=== PATIENT | male | born 1975 | race African-American/Black ===

== ENCOUNTER → 2023-11-04 | Outpatient (CLI) | payer OTHER ==
[~2023-11-04] MED LIST: PROHANCE 279.3MG/ML 15ML VIAL ONE
== END ==
LOC: M PLAIMG 07:48
PROVIDERS: ATTEND Internal Medicine Gastroenterology
DX: K86.81 Exocrine pancreatic insufficiency (principal)
CPT/HCPCS: 74183; A9576

== ENCOUNTER → 2023-11-14 | Outpatient (REF) | payer OTHER | LOC: M LAB REF 17:39 | PROVIDERS: ATTEND Internal Medicine Gastroenterology | DX: K58.1 Irritable bowel syndrome with constipation (principal) ==

== ENCOUNTER 2023-12-10 16:17 | Emergency (ER) | payer OTHER ==
[~2023-12-10] VITALS: Ht 175.3 cm; Wt 88.7 kg
[2023-12-10] MEDS ORDERED: OMEP-173 (16:27)
[2023-12-10] MEDS ORDERED: SENN-83 (16:27)
[2023-12-10 18:15] LABS: BASO % 0.4 % (0.0-1.0); EOS # 0.2 10^3/uL (0.0-0.5); EOS % 4.4 % (0.0-3.0); HEMATOCRIT 41.7 % (42.0-52.0); HEMOGLOBIN 14.5 g/dl (13.5-17.5); LYMPH # 1.5 10^3/uL (1.5-5.0); LYMPH % 28.8 % (24.0-44.0); MEAN CORPUSCULAR HEMOGLOBIN 29.7 pg (27.0-33.0); MEAN CORPUSCULAR HGB CONC 34.8 g/dl (32.0-36.5); MEAN CORPUSCULAR VOLUME 85.3 fl (80.0-96.0); MONO # 0.3 10^3/uL (0.0-0.8); MONO % 6.1 % (2.0-8.0); NEUTROPHILS # 3.2 10^3/uL (1.5-8.5); NEUTROPHILS % 60.1 % (36.0-66.0); PLATELET COUNT, AUTOMATED 198 10^3/uL (150-450); RED BLOOD COUNT 4.89 10^6/uL (4.30-6.10); WHITE BLOOD COUNT 5.2 10^3/uL (4.0-10.0)
[2023-12-10 18:28] LABS: BLOOD UREA NITROGEN 6 MG/DL (9-23); CALCIUM LEVEL 8.6 MG/DL (8.5-10.1); CARBON DIOXIDE LEVEL 29 MMOL/L (20-31); CHLORIDE LEVEL 104 MMOL/L (98-107); CREATININE FOR GFR 0.94 MG/DL (0.70-1.30); GLOMERULAR FILTRATION RATE > 60.0 (>56); GLUCOSE, FASTING 83 MG/DL (60-100); SODIUM LEVEL 138 MMOL/L (136-145)
[2023-12-10] MEDS ORDERED: ISOVUE-370 76% 100ML VIAL As Ordered ONE (21:02)
[2023-12-10] MEDS: KETOROLAC 30 MG/ML 1ML VIAL IV ONE (21:21)
[2023-12-10] MEDS ORDERED: ENEMENE8 PR (21:42)
[2023-12-10] MEDS ORDERED: COLA1TAB PO (21:42)
[2023-12-10] MEDS ORDERED: GOLYLQ PO (21:43)
[2023-12-10 21:47] VITALS: BP 131/79; TEMP 97.7; O2SAT 98
[2023-12-10] MEDS: MAGNESIUM CITRATE 300ML BTL PO ONE (21:47)
== END 2023-12-10 22:10 | disposition home or self-care (01) ==
LOC: M ED 16:17
DX: K59.00 Constipation, unspecified (principal); Z79.52 Long term (current) use of systemic steroids; Z79.83 Long term (current) use of bisphosphonates; Z79.899 Other long term (current) drug therapy
CPT/HCPCS: 74018; 74177; 80048; 85025; 96374; 99283; J1885; Q9967

== ENCOUNTER 2024-03-23 12:07 | Day surgery (SDC) | payer OTHER ==
[~2024-03-23] VITALS: Ht 175.3 cm; Wt 83.6 kg
[~2024-03-23 12:07] MED LIST changes: +COLA1TAB PO; +DOCU100C16 PO; +ENEMENE8 PR; +GOLYLQ PO; +LINZ290C PO; +OMEP-173; -PROHANCE 279.3MG/ML 15ML VIAL ONE; +SENN-83
[2024-03-23] MEDS: NS 1,000 ML IV ONE (12:22)
[2024-03-23] MEDS ORDERED: LIDOCAINE 2% 100MG/5ML SDV (FOR ANES.) As Ordered ONE (12:32)
[2024-03-23] MEDS ORDERED: propofoL 200 MG/20 ML VIAL As Ordered ONE (12:32)
[2024-03-23] MEDS ORDERED: fentaNYL 100 MCG/2 ML INJECTION As Ordered ONE (12:33)
[2024-03-23 13:42] VITALS: BP 112/76; TEMP 97.2; O2SAT 99
== END 2024-03-23 14:10 | disposition home or self-care (01) ==
LOC: M OPP 12:07
PROVIDERS: ATTEND Internal Medicine Gastroenterology
DX: K58.1 Irritable bowel syndrome with constipation (principal); R10.84 Generalized abdominal pain; K29.70 Gastritis, unspecified, without bleeding; K31.89 Other diseases of stomach and duodenum; R10.13 Epigastric pain; R14.0 Abdominal distension (gaseous); Z79.899 Other long term (current) drug therapy
CPT/HCPCS: 43239; 45378; 88305; J3010